=== PATIENT | female | born 1975 | race Hispanic/Latino ===

== ENCOUNTER 2022-07-24 19:23 | Emergency (ER) | payer BC ==
--- OUTSIDE RECORDS SUMMARY | 2022-07-24 19:28 | XMS REPORT | Continuity of Care Document ---
:1975 Author Organization [facility] t Address [address] [facility] [address] [place] [address] Care Team Providers Name Role Phone Shaun Carballo MD Primary Care Physician [phone] Bonita Lozano Attending Clinician Unavailable Shaun Carballo MD Attending Clinician Lab, Ang - Db Attending Clinician Unavailable SHAUN CARBALLO Attending Clinician Unavailable Doctor Unassigned, [place] Attending Clinician Unavailable Brenda Gonzalez RN Attending Clinician Unavailable Lab, Adc Fam Pob I Attending Clinician Unavailable Ashleigh Haro Attending Clinician ASHLEIGH PEREZ Attending Clinician Unavailable Payers Payer Name Policy Type Policy Number Effective Date Expiration Date Jessica gracie AETNA O [id number] 2013 00:00:00 [employer] and C1 [id number] 2020 Common Blue [facility] 00:00:00 [facility] AETNA C1 [id number] [facility] [id number] 2014 HEALTHCARE 00:00:00 PPO/POS Problems Condition Condition Condition Status Onset Resolution Last Treating Co mments Source Name Details Category Date Date Treatment Clinician Date No known No known Disease Unive rs active active ity of problems problems [facility] Asthma Asthma Problem Active [facility] Vitamin D Vitamin D Problem Active Com [facility] Hypothyroi Hypothyroi Problem Active C ommon dism dism [facility] Allergies, Adverse Reactions, Alerts Allergy Allergy Status Severity Reaction(s) Onset Inactive Treating Comm ents Source Name Type Date Date Clinician TRAMADOL DRUG Active Rash Univers INGREDI 10-29 ity of 00:00: [place] 00 [facility] Tramadol Propensi Active Rash Univer s ty to 10-29 ity of adverse 00:00: [place] reaction 00 [facility] [place] Social History Social Habit Start Date Stop Date Quantity Comments Source History of Common [facility] - Tobacco Use [facility] Sex Assigned At Common mariza - [facility] Exposure to 2021-10-19 2021-10-29 Not sure [facility] SARS-CoV-2 00:00:00 10:06:00 [facility] (event) [place] Tobacco use and 2020-10-29 2020-10-29 Smokeless tobacco Un iversity of exposure 00:00:00 00:00:00 non-user [facility] Alcohol intake 2020-10-29 2020-10-29 Ex-drinker [facility] 00:00:00 00:00:00 (finding) [facility] Smoking Status Start Date Stop Date Source Never Smoker [facility] Medications Ordered Filled Start Stop Current Ordering Indication Dosage Frequency Signature Comments Components Source Medication Medication Date Date Medication? Clinician (SIG) Name Name montelukast 2021- No 10mg Take 10 mg Univers 10 mg 10-29 by mouth. ity of tablet 10:52: 00:00 [place] 19 :00 [facility] Branch albuterol 2021- No 2{puff} Inhale 2 Univers (VENTOLIN 10-29 Puffs ity of HFA) 90 10:52: 00:00 every 6 [place] mcg/actuati 19 :00 (six) Medical on inhaler hours as Branc h needed for Wheezing or Shortness of Breath. dicyclomine Yes [id number] 20mg Take 1 Univers 20 mg 10-29 tablet by ity of tablet 00:00: mouth 3 [place] 00 (three) Medical times Branch daily. albuterol Yes [id number] 2{puff} Inhale 2 Univers (VENTOLIN 6-23 Puffs ity of HFA) 90 00:00: every 6 [place] mcg/actuati 00 (six) Medical on inhaler hours as Branc h needed for Wheezing or Shortness of Breath. montelukast 0 Yes [id number] 10mg Take 1 Univers 10 mg 6-23 tablet by ity of tablet 00:00: mouth [place] 00 daily. Medical Branch levothyroxi 0 Yes [id number] 137ug Take 1 Univers ne 6-23 tablet by ity of (EUTHYROX) 00:00: mouth [place] 137 mcg 00 every Medical tablet morning. Branch dicyclomine 0 Yes [id number] 20mg Take 1 Univers 20 mg 6-23 tablet by ity of tablet 00:00: mouth 3 [place] 00 (three) Medical times Branch daily. albuterol 0 Yes [id number] 2{puff} Inhale 2 Univers (VENTOLIN 6-23 Puffs ity of HFA) 90 00:00: every 6 [place] mcg/actuati 00 (six) Medical on inhaler hours as Branc h needed for Wheezing or Shortness of Breath. montelukast 0 Yes [id number] 10mg Take 1 Univers 10 mg 6-23 tablet by ity of tablet 00:00: mouth [place] 00 daily. Medical Branch levothyroxi 0 Yes [id number] 137ug Take 1 Univers ne 6-23 tablet by ity of (EUTHYROX) 00:00: mouth [place] 137 mcg 00 every Medical tablet morning. Branch dicyclomine 0 Yes [id number] 20mg Take 1 Univers 20 mg 6-23 tablet by ity of tablet 00:00: mouth 3 [place] 00 (three) Medical times Branch daily. albuterol 2021-0 Yes [id number] 2{puff} Inhale 2 Univers (VENTOLIN 6-23 Puffs ity of HFA) 90 00:00: every 6 [place] mcg/actuati 00 (six) Medical on inhaler hours as Branc h needed for Wheezing or Shortness of Breath. montelukast 0 Yes [id number] 10mg Take 1 Univers 10 mg 6-23 tablet by ity of tablet 00:00: mouth [place] 00 daily. Medical Branch levothyroxi Yes [id number] 137ug Take 1 Univers ne 6-23 tablet by ity of (EUTHYROX) 00:00: mouth [place] 137 mcg 00 every Medical tablet morning. Branch dicyclomine Yes [id number] 20mg Take 1 Univers 20 mg 6-23 tablet by ity of tablet 00:00: mouth 3 [place] 00 (three) Medical times Branch daily. albuterol Yes [id number] 2{puff} Inhale 2 Univers (VENTOLIN 6-23 Puffs ity of HFA) 90 00:00: every 6 [place] mcg/actuati 00 (six) Medical on inhaler hours as Branc h needed for Wheezing or Shortness of Breath. montelukast Yes [id number] 10mg Take 1 Univers 10 mg 6-23 tablet by ity of tablet 00:00: mouth [place] 00 daily. Medical Branch levothyroxi Yes [id number] 137ug Take 1 Univers ne 6-23 tablet by ity of (EUTHYROX) 00:00: mouth [place] 137 mcg 00 every Medical tablet morning. Branch levothyroxi 2021- No [id number] 137ug Take 1 Univers ne 6-16 06-23 tablet by ity of (EUTHYROX) 00:00: 00:00 mouth [place] 137 mcg 00 :00 every Medical tablet morning. Branch dicyclomine 2020-05- No [id number] 20mg Take 1 Univers 20 mg 0-18 06-23 tablet by ity of tablet 00:00: 00:00 mouth 3 [place] 00 :00 (three) Medical times Branch daily. medroxyPROG 2021-0 Yes 150mg 150 mg by Univers ESTERone 6-23 Intramuscu ity o f 150 mg/mL 13:37: lar route Christ as syringe 07 every 3 Medical (three) Branch months. medroxyPROG 2021-0 Yes 150mg 150 mg by Univers ESTERone 6-23 Intramuscu ity o f 150 mg/mL 13:37: lar route Christ as syringe 07 every 3 Medical (three) Branch months. medroxyPROG 2021-0 Yes 150mg 150 mg by Univers ESTERone 6-23 Intramuscu ity o f 150 mg/mL 13:37: lar route Christ as syringe 07 every 3 Medical (three) Branch months. medroxyPROG Yes 150mg 150 mg by Univers ESTERone 6- Intramuscu ity o f 150 mg/mL 13:37: lar route Christ as syringe 07 every 3 Medical (three) Branch months. Dicyclomine Dicyclomine 2020- No 1{table TID Dicyclomin HCl 20 MG HCl 20 MG 3-19 04-18 t} e HCl 20 00:00: 00:00 MG 00 :00 Dicyclomine Dicyclomine 2019- No 1{table TID Dicyclomin Common HCl 20 MG HCl 20 MG 0-19 t} e HCl 20 S pirit 00:00: MG - [facility] 00 [facility] Dicyclomine Dicyclomine 2019-05 No 1{table TID Dicyclomin HCl 20 MG HCl 20 MG 0-19 t} e HCl 20 00:00: MG 00 Dicyclomine Dicyclomine 2019-05 No 1{table TID Dicyclomin HCl 20 MG HCl 20 MG 0-19 t} e HCl 20 00:00: MG 00 Hydrocortis Hydrocortis 2018-05- No [place] 1 Common one one 05-20 05-10 [place] applicatio Spirit 00:00: 00:00 n - CHI 00 :00 [facility] Ventolin Ventolin No 2{puffs QID Ventolin HFA 108 (90 HFA 108 (90 _as_nee HFA 108 Base) Base) ded} (90 Base) MCG/ACT MCG/ACT MCG/ACT Singulair Singulair No 1{table QD Singulair 10 MG 10 MG t} 10 MG Hydroquinon Hydroquinon No Hydroquino e 4 % e 4 % ne 4 % Sprintec 28 Sprintec 28 No Sprintec 0.25-35 0.25-35 28 0.25-35 MG-MCG MG-MCG MG-MCG Levothyroxi Levothyroxi No QD Levothyrox ne Sodium ne Sodium ine Sodium 175MCG 175MCG 175MCG Betamethaso Betamethaso No 1{appli BID Betamethas ne ne cation_ one Dipropionat Dipropionat to_affe Dipropiona e 0.05 % e 0.05 % cted_ar te 0.05 % ea} Ventolin Ventolin No 2{puffs QID Ventolin Common HFA 108 (90 HFA 108 (90 _as_nee HFA 108 Spirit Base) Base) ded} (90 Base) [facility] MCG/ACT MCG/ACT MCG/ACT [facility] Hydroquinon Hydroquinon No Hydroquino Common e 4 % e 4 % ne 4 % [facility] Singulair Singulair No 1{table QD Singulair Common 10 MG 10 MG t} 10 MG [facility] Sprintec 28 Sprintec 28 No Sprintec Common 0.25-35 0.25-35 28 0.25-35 Spi rit MG-MCG MG-MCG MG-MCG [facility] Levothyroxi Levothyroxi No QD Levothyrox Common ne Sodium ne Sodium ine Sodium Spirit 175MCG 175MCG 175MCG [facility] Ventolin Ventolin No 2{puffs QID Ventolin HFA 108 (90 HFA 108 (90 _as_nee HFA 108 Base) Base) ded} (90 Base) MCG/ACT MCG/ACT MCG/ACT Levothyroxi Levothyroxi No QD Levothyrox ne Sodium ne Sodium ine Sodium 150 MCG 150 MCG 150 MCG Hydroquinon Hydroquinon No Hydroquino e 4 % e 4 % ne 4 % Singulair Singulair No 1{table QD Singulair 10 MG 10 MG t} 10 MG Sprintec 28 Sprintec 28 No Sprintec 0.25-35 0.25-35 28 0.25-35 MG-MCG MG-MCG MG-MCG Levothyroxi Levothyroxi No QD Levothyrox ne Sodium ne Sodium ine Sodium 175MCG 175MCG 175MCG Ventolin Ventolin No 2{puffs QID Ventolin HFA 108 (90 HFA 108 (90 _as_nee HFA 108 Base) Base) ded} (90 Base) MCG/ACT MCG/ACT MCG/ACT Hydroquinon Hydroquinon No Hydroquino e 4 % e 4 % ne 4 % Singulair Singulair No 1{table QD Singulair 10 MG 10 MG t} 10 MG Sprintec 28 Sprintec 28 No Sprintec 0.25-35 0.25-35 28 0.25-35 MG-MCG MG-MCG MG-MCG Levothyroxi Levothyroxi No QD Levothyrox ne Sodium ne Sodium ine Sodium 175MCG 175MCG 175MCG Levothyroxi Levothyroxi No QD Levothyrox ne Sodium ne Sodium ine Sodium 150 MCG 150 MCG 150 MCG Hydroquinon Hydroquinon No Hydroquino e 4 % e 4 % ne 4 % Singulair Singulair No 1{table QD Singulair 10 MG 10 MG t} 10 MG Ventolin Ventolin No 2{puffs QID Ventolin HFA 108 (90 HFA 108 (90 _as_nee HFA 108 Base) Base) ded} (90 Base) MCG/ACT MCG/ACT MCG/ACT 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-Power 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-Power Reactor 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 No 1{ml} Depo-Prove a 150 MG/ML a 150 MG/ML ra 150 MG/ML Levothyroxi Levothyroxi No QD Levothyrox ne Sodium ne Sodium ine Sodium 137 MCG 137 MCG 137 MCG Hydrocortis Hydrocortis 2019- No [place] 1 Common one Acetate one Acetate 11-12 [place] applicatio Spirit 00:00 n - [facility]I :00 [facility] Immunizations Ordered Filled Immunization Date Status Comments Sourc e Immunization Name Name Influenza Virus 2022-02-09 Completed Universit y of Vaccine Quad .5 mL 00:00:00 [facility] 6+ MO Branch Influenza Virus 2022-02-09 Completed Universit y of Vaccine Quad .5 mL 00:00:00 [facility] 6+ MO Branch Flublok Flublok 2020-02-25 Completed Common Spirit - 11:51:00 [facility] Flublok Flublok 2020-02-25 Completed Common Spirit - 11:51:00 [facility] Flublok Flublok 2020-02-25 Completed Common Spirit - 11:51:00 [facility] Flublok Flublok 2020-02-25 Completed Common Spirit - 11:51:00 [facility] Vital Signs Vital Name Observation Time Observation Value Comments Source Systolic blood 2021-10-29 15:16:00 122 mm[Hg] Univer sity of pressure [facility] Diastolic blood 2021-10-29 15:16:00 79 mm[Hg] Unive rsity of pressure [facility] Heart rate 2021-10-29 15:16:00 76 /min [facility] Body weight 2021-10-29 15:16:00 77.111 kg [facility] BMI 2021-10-29 15:16:00 31.09 kg/m2 [facility] height 2020-07-25 11:40:00 61.5 [in_i] Common [facility] weight 2020-07-25 11:40:00 166 [lb_av] Common [facility] temperature 2020-07-25 11:40:00 98.0 [degF] Common [facility] bmi 2020-07-25 11:40:00 30.85 kg/m2 [facility] oximetry 2020-07-25 11:40:00 100 % [facility] respiratory rate 2020-07-25 11:40:00 8 /min Comm on [facility] blood pressure 2020-07-25 11:40:00 127 mm[Hg] Common [facility] - systolic [facility] blood pressure 2020-07-25 11:40:00 62 mm[Hg] Common [facility] - diastolic [facility] height 2020-02-25 11:00:00 61.5 [in_i] Common [facility] weight 2020-02-25 11:00:00 164.8 [lb_av] Common [facility] temperature 2020-02-25 11:00:00 97.2 [degF] Common [facility] bmi 2020-02-25 11:00:00 30.63 kg/m2 [facility] oximetry 2020-02-25 11:00:00 99 % [facility] respiratory rate 2020-02-25 11:00:00 16 /min Comm on [facility] blood pressure 2020-02-25 11:00:00 122 mm[Hg] Common [facility] - systolic [facility] blood pressure 2020-02-25 11:00:00 70 mm[Hg] Common [facility] - diastolic [facility] Procedures This patient has no known procedures. Encounters Start End Encounter Admission Attending Care Care Encounter Source Date/Time Date/Time Type Type Clinicians Facility Department ID 2021-06-03 Outpatient BISMARK Lozano [facility] [id number] Common 12:42:13 [place] [address] Spirit - [facility] 2022-05-10 2022-05-10 Telephone [facility] [id number] Univers 00:00:00 00:00:00 [facility] [id number] it y of [place] [id number] Christ as BRAULIO?BLEA [phone] [address] MEDICAL OFFICE BUILDING 2022-02-09 2022-02-09 Telephone [facility] [id number] Univers 00:00:00 00:00:00 [facility] [id number] it y of [place] [id number] Christ as BRAULIO?BLEA [phone] [address] OFFICE [facility] 2021-10-29 2021-10-29 Bar Pointer Lab, Ang - Db [facility] [id number] Univers 11:00:00 11:15:00 Visit Shaun Carballo [facility] [id number] ity of [place] [id number] Christ as BRAULIO?BLEA [phone] [facility] [address] [place] MEDICAL OFFICE BUILDING 2021-10-29 2021-10-29 [id number] [facility] 11:00:00 11:00:00 SHAUN [facility] 2021-10-29 2021-10-29 Office [facility] [id number] [facility] 10:00:00 10:55:28 Visit [facility] [id number] it y of [place] [id number] Christ as BRAULIO?BLEA [phone] Me dic[address] OFFICE [facility] 2021-10-29 2021-10-29 [facility] [id number] Univers 10:00:00 10:55:28 SHAUN allen [facility] 2021-10-22 2021-10-22 [facility] [id number] Univers 00:00:00 00:00:00 [facility] [id number] it y of [place] [id number] Christ as BRAULIO?BLEA [phone] [address] OFFICE [facility] 2021-10-13 2021-10-13 [facility] [id number] Univers 00:00:00 00:00:00 [facility] HEALTH [id number] it y of [place] [id number] Christ as BRAULIO?BLEA [phone] [address] OFFICE [facility] 2021-09-15 2021-09-15 [facility] 1.2.840.114 [id number] Univers 00:00:00 00:00:00 [facility] [id number] it y of [place] [id number] Christ as BRAULIO?BLEA [phone] [address] 2021-08-16 2021-08-16 [facility] 1.2.840.114 [id number] Univers 00:00:00 00:00:00 [facility] [id number] it y of [place] [id number] Christ as PROFESSIO [id number] [address] ONE 2021-08-13 2021-08-13 [facility] 1.2.840.114 [id number] Univers 00:00:00 00:00:00 [facility] HEALTH [id number] it y of [place] [id number] Christ as PROFESSIO [phone] [address] ONE 2021-07-13 2021-07-13 [facility] 1.2.840.114 [id number] Univers 00:00:00 00:00:00 Shaun HEALTH [id number] it y of [place] [id number] Christ as PROFESSIO [phone] [address] 2021-06-11 2021-06-11 Telephone [facility] 1.2.840.114 [id number] Univers 00:00:00 00:00:00 Shaun HEALTH [id number] it y of [place] [id number] Christ as PROFESSIO [phone] [address] 2021-02-26 2021-02-26 [facility] 1.2.840.114 [id number] Univers 00:00:00 00:00:00 Shaun HEALTH [id number] it y of [place] [id number] Christ as BRAULIO?BLEA [phone] [address] OFFICE [facility] 2021-02-23 2021-02-23 [facility] 1.2.840.114 [id number] Univers 00:00:00 00:00:00 Shaun Health [id number] it y of [place] [id number] Christ as Braulio?Blea [phone] [address] Office [facility] 2021-01-29 2021-01-29 Orders Doctor GOMEZ 1.2.840.114 [id number] Univers 00:00:00 00:00:00 Only UnassignedBORIS [id number] ity of [place] [facility] [id number] Christ as [phone] [address] 2020-11-14 2020-11-14 Orders JASON Carballo 1.2.840.114 [id number] Univers 00:00:00 00:00:00 Only Sahun JOSEY [id number] it y of [place] [facility] [id number] Christ as [id number] [address] 2020-10-29 2020-10-[address] [facility] 1.2.840.114 [id number] Univers 13:25:41 13:55:41 Visit Shaun Sewell [id number] it y of [place] [id number] Christ as Professio [id number] [address] Office Building One 2020-10-29 2020-10-29 Outpatient R ROSITA [facility] [id number] Univers 13:30:00 13:30:00 SHAUN ity of [facility] 2020-10-29 2020-10-29 Orders Doctor JASON 1.2.840.114 [id number] Univers 00:00:00 00:00:00 Only Unassigned, BORIS [id number] [facility] [id number] Christ as [id number] [address] 2020-07-25 2020-07-25 [facility] [id number] Co mmon 00:00:00 00:00:00 VISIT EST Spir it PT LEVEL 3 - [facility] 2020-07-08 2020-07-08 (TEL) [facility] [id number] Co mmon 00:00:00 00:00:00 [facility] 2020-04-08 2020-04-08 (TEL) [facility] [id number] Co mmon 00:00:00 00:00:00 [facility] 2020-02-25 2020-02-25 PREV VISIT [facility] ST[facility] [id number] Common 00:00:00 00:00:00 EST AGE Spirit 40-64 - [facility] 2020-02-06 2020-02-06 (TEL) [facility] [id number] Co mmon 00:00:00 00:00:00 [facility] 2020-01-10 2020-01-10 Letter JASON Gonzalez [id number] Univers 00:00:00 00:00:00 (Out) Brneda ESCALANTE [id number] it y of [facility] [id number] Christ as [id number] [facility] [address] [place] 2020-01-09 2020-01-09 Laboratory Lab, Adc Fam Pob I [facility] 1.2. 840.114 [id number] Univers 13:09:32 13:24:32 Only Ashleigh Perez [id number] ity of [place] [id number] Christ as Professio [phone] Ms dical [facility] [address] [place] Office Building One 2020-01-09 2020-01-09 Outpatient R ANA [facility] [id number] Univers 13:00:00 13:00:00 ASHLEIGH ity [facility] 2020-01-09 2020-01-09 Letter Doctor JASON 1.2.840.114 [id number] Univers 00:00:00 00:00:00 (Out) Unassigned, BORIS [id number] ity of [place] [facility] [id number] Christ as [phone] [address] 2019-03-20 2019-03-20 Outpatient [facility] [id number] Common 11:44:00 11:44:00 [facility] 2019-02-26 2019-02-26 Outpatient [facility] [id number] Common 08:20:00 08:20:00 [facility] Results Test Description Test Time Test Comments Results Result Comments Source SARS-CoV-2 (COVID-19), RT-PCR/TMA 2021-05-28 15:38:03 Test Item Value Reference Range Interpretation Comme nts SARS-CoV-2 INTERPRETATION NEGATIVE SEE NOTE S ARS-CoV-2 RNA NOT (test code = 20864) DETECTED Negative results do not preclude SARS-C oV-2 infection and should notb e used as the sole basis for patient management deci sions. Negativeresults must be combined with c linical observations, p atient history,and epi demiological information. Op timum specimen types and timin gfor peak viral levels during i nfections caused by SARS-CoV-2 h ave notbeen determined. Col lection of multiple specim ens or types ofspecimens may be necessary to detect virus. I mproper specimencollect ion and handling, seque nce variability under primers/p robes,or organism presen t below the limit of detect ion may lead to falsenegative r esults. Positive and negative pr edictive values oftesting are h ighly dependent on prevalence. False negative testresults are more likely when prevalence is high. SOURCE (test code = 43292) NASOPHARYNGEAL Note: Methodology is Renee Maximino Real-Time RT-PCR. The expected result or reference range is NEGATI VE (Not Detected). For more information regarding COVID -19 testing to include clinica linformation, methodology det ail, intended use, FDA author ization andrecommended fact sheets for patients or hea lthcare providers, see [employer] Announcement: S ARS-CoV-2 (COVID-19) by N AAT at URL below (note,fact shee ts are provided by method given in report:https:// www.Daily Dealy.Hipui/ clinicians/mikel nt-communication s/ Alternativel y, see downloadable PD F fact sheet at:https://www. [employer]ail/COVI D-19-RT-PCR UNL ESS OTHERWISE INDICATED, ALL TESTING PERFORMED [facility], I MS. [address] [place] [address] [id number] 4 PROGRAM MGR: Luís SPANN [id number] CAP ACCREDITATION N O. [id number]
[2022-07-24] MEDS ORDERED: ONDANSETRON 4 MG/2 ML VIAL ONE (20:07)
[2022-07-24] MEDS ORDERED: NA CHLORIDE 0.9% 1,000 ML ONE (20:07)
[2022-07-24] MEDS ORDERED: KETOROLAC 30 MG/ML INJ ONE (20:07)
[2022-07-24] MEDS ORDERED: FAMOTIDINE 20 MG/2 ML VIAL IV ONE (20:07)
[2022-07-24 20:14] LABS: Absolute Lymphocytes (CBC) 1.1 K/uL (0.7-4.9); Hematocrit 42.1 % (36.0-45.0); Lymphocytes % 15.4 % (15.3-44.8); MCV 89.8 fL (80-100); MPV 8.7 fL (7.6-11.3); RBC Red Blood Cell Count 4.69 M/uL (3.86-4.86)
[2022-07-24 20:16] LABS: Urine Blood Trace-intact (Negative); Urine Glucose Negative (Negative); Urine Protein 1+ (Negative); Urine Specific Gravity 1.015 (1.005-1.030); Urine pH 6.5 (5.0-7.0)
[2022-07-24 20:29] LABS: Albumin 3.8 g/dL (3.4-5.0); Bilirubin Total 0.4 mg/dL (0.2-1.0); Potassium 3.2 mEq/L (3.5-5.1); Protein, Total 7.6 g/dL (6.4-8.2)
[2022-07-24 20:31] LABS: Urine Specific Gravity/Preg 1.015 (1.005-1.030)
--- NOTE | 2022-07-24 21:27 | RAD REPORT ---
EXAM DESCRIPTION: CT - Abdomen Pelvis W Contrast - 07/24/2022 8:54 pm CLINICAL HISTORY: Abdominal pain COMPARISON: 2009 TECHNIQUE: Computed axial tomography of the abdomen pelvis was obtained. 95 cc Isovue-300 was admini stered intravenously. Oral contrast was not requested which limits evaluation of bowel and appendix All CT scans are performed using dose optimization technique as appropriate and may include automated exposure control or mA/KV adjustment according to patient size. FINDINGS: The liver, spleen, pancreas, adrenal and kidneys appear unremarkable. There is no evidence of diverticulitis. Normal appendix No adnexal mass Wall of the distal stomach appears thickened Tiny umbilical hernia IMPRESSION: Wall of the distal stomach appears thickened. This may be secondary to inflammation
--- NOTE | 2022-07-24 21:35 | EDPHYS ---
Physician Documentation [facility] Name: Perlita Holguin Age: 47 yrs Sex: Female : 1975 Arrival Date: 07/24/2022 Time: 19:26 Bed 13 Private MD: ED Physician Fausto Mondragon HPI: 07/24 20:25 This 47 yrs old Female presents to ER via Ambulatory with complaints of ms3 Abdominal Pain. 20:25 47-year-old female wit past medical history of hypothyroidism presents for abdominal ms3 pain that began last night. Patient rates her pain a 9/10 describes pain as cramping. Patient states she has body aches, diarrhea x1, chills. Patient denies shortness of breath or chest pain. Patient denies alleviating or inciting factors. Historical: - Allergies: 19:55 tramadol; ha1 - Home Meds: 19:55 levothyroxine oral [Active]; ha1 - Immunization history:: Adult Immunizations up to date. - Social history:: Smoking status: unknown. ROS: 20:25 Constitutional: Negative for fever, and chills. Neck: Negative for injury, pain, and ms3 swelling, Cardiovascular: Negative for chest pain, and palpitations. Respiratory: Negative for shortness of breath, cough, wheezing, and pleuritic chest pain. 20:25 MS/Extremity: Negative for injury and deformity, Skin: Negative for injury, rash, and discoloration. 20:25 Abdomen/GI: Positive for abdominal pain, nausea, diarrhea. 20:25 All other systems are negative. Exam: 20:25 Constitutional: This is a well developed, well nourished patient who is awake, alert, ms3 and in no acute distress. Head/Face: Normocephalic, atraumatic. Neck: Trachea midline, no cervical lymphadenopathy. Supple, full range of motion without nuchal rigidity, or vertebral point tenderness. No Meningismus. Chest/axilla: Normal chest wall appearance and motion. Nontender with no deformity. Cardiovascular: Regular rate and rhythm with a normal S1 and S2. No gallops, murmurs, or rubs. Normal PMI, no JVD. No pulse deficits. Respiratory: Lungs have equal breath sounds bilaterally, clear to auscultation and percussion. No rales, rhonchi or wheezes noted. No increased work of breathing, no retractions or nasal flaring. 20:25 Abdomen/GI: Inspection: abdomen appears normal, Bowel sounds: normal, Palpation: mild abdominal tenderness, in the right lower quadrant. Vital Signs: 19:58 BP 101 / 70; Pulse 98; Resp 16; Temp 98.6; Pulse Ox 100% ; Weight 77.11 kg; Height 5 ha1 ft. 2 in. ; Pain 9/10; 20:45 BP 111 / 57; Pulse 83; Resp 18; Pulse Ox 98% on R/A; eh3 19:58 Body Mass Index 31.09 (77.11 kg, 157.48 cm) ha1 19:58 Pain Scale: Adult ha1 MDM: 19:46 Patient medically screened. ms3 20:25 Differential diagnosis: appendicitis, cholecystitis, Cholelithiasis, gastritis, ms3 non-specific abd pain. 07/24 19:45 Order name: Urine Dipstick-Ancillary (obtain specimen); Complete Time: 20:16 la3 07/24 19:45 Order name: Urine Test (obtain specimen); Complete Time: 20:16 ms3 07/24 20:17 Order name: Urine --Ancillary (enter results); Complete Time: 20:51 ds4 07/24 19:45 Order name: CT Abd/Pelvis - IV Contrast Only; Complete Time: 21:33 ms3 07/24 19:41 Order name: CBC with Diff; Complete Time: 20:23 kl 07/24 19:41 Order name: CMP; Complete Time: 20:51 kl 07/24 19:41 Order name: Lipase; Complete Time: 20:51 07/24 19:41 Order name: IV Saline Lock; Complete Time: 20:07 kl 07/24 19:41 Order name: Labs collected and sent; Complete Time: 20:07 07/24 20:17 Order name: Urine Dipstick-Ancillary; Complete Time: 20:23 EDMS Administered Medications: 20:00 Drug: Famotidine IVP 20 mg Route: IVP; Site: right antecubital; kl 21:32 Follow up: Response: No adverse reaction 3 20:17 Drug: NS 0.9% IV 1000 ml Route: IV; Rate: 1 bolus; Site: right antecubital; kl 20:17 Drug: Ondansetron IVP 4 mg Route: IVP; Site: right antecubital; kl 21:33 Follow up: Response: Nausea is decreased eh3 20:18 Drug: TORadol - Ketorolac IVP 15 mg Route: IVP; Site: right antecubital; kl 21:33 Follow up: Response: Pain is decreased eh3 Disposition Summary: 07/24/22 21:35 Discharge Ordered Location: Home ms3 Condition: Stable ms3 Diagnosis - Abdominal pain, Generalized ms3 - Nausea ms3 - Diarrhea, unspecified ms3 Followup: ms3 - With: Riccardo San DO - When: 2 - 3 days - Reason: Recheck today's complaints Forms: - Medication Reconciliation Form ms3 - Thank You Letter ms3 - Antibiotic Education ms3 - Prescription Opioid Use ms3 Signatures: Dispatcher [employer] Suad Benoit RN RN kl Sims, Marcus, DO DO ms3 Rebecca Ji RN RN 1 Addis Jennings RN 3
--- NOTE | 2022-07-24 21:35 | ER ---
Nurse's Notes [facility] Name: Perlita Holguin Age: 47 yrs Sex: Female : 1975 Arrival Date: 07/24/2022 Time: 19:26 Bed 13 Private MD: Diagnosis: Abdominal pain, Generalized;Nausea;Diarrhea, unspecified Presentation: 07/24 19:52 Acuity: MASON 3 ha1 19:58 Chief complaint: Patient states: I have been having diarrhea, nausea, and abdominal ha1 pain. Ebola Screen: No symptoms or risks identified at this time. Initial Sepsis Screen: Does the patient meet any 2 criteria? No. Patient's initial sepsis screen is negative. Does the patient have a suspected source of infection? No. Patient's initial sepsis screen is negative. Risk Assessment: Do you want to hurt yourself or someone else? Patient reports no desire to harm self or others. Onset of symptoms was July 24, 2022. 19:58 Method Of Arrival: Ambulatory ha1 Triage Assessment: 19:37 General: Appears comfortable, Behavior is calm, cooperative. Pain: Complains of pain in ha1 abdomen. EENT: No signs and/or symptoms were reported regarding the EENT system. Neuro: Level of Consciousness is awake, alert, obeys commands, Oriented to person, place, time, situation. Respiratory: Airway is patent Respiratory effort is even, unlabored, Respiratory pattern is regular, symmetrical. GI: Abdomen is flat, non-distended, Reports diarrhea, nausea. Musculoskeletal: Circulation, motion, and sensation intact. Range of motion: intact in all extremities. Historical: - Allergies: 19:55 tramadol; ha1 - Home Meds: 19:55 levothyroxine oral [Active]; ha1 - Immunization history:: Adult Immunizations up to date. - Social history:: Smoking status: unknown. Screenin:45 [facility] ED Fall Risk Assessment (Adult) Score/Fall Risk Level 0 - 2 = Low Risk. eh3 20:02 Abuse screen: Denies threats or abuse. Denies injuries from another. Nutritional ha1 screening: No deficits noted. Tuberculosis screening: No symptoms or risk factors identified. Assessment: 19:45 General: Appears in no apparent distress. uncomfortable, Behavior is calm, cooperative, eh3 appropriate for age. Pain: Complains of pain in abdomen Also complains of decreased appetite, nausea. Neuro: Level of Consciousness is awake, alert, obeys commands, Oriented to person, place, time, situation. Cardiovascular: Capillary refill < 3 seconds Patient's skin is warm and dry. Respiratory: Airway is patent Respiratory effort is even, unlabored, Respiratory pattern is regular, symmetrical. GI: Abdomen is round non-distended, Bowel sounds present X 4 quads. Abd is soft X 4 quads Abdomen is tender to palpation X 4 quads. GI: Reports lower abdominal pain, upper abdominal pain, diarrhea, intolerance of fluids, intolerance of food, nausea, vomiting. : No signs and/or symptoms were reported regarding the genitourinary system. EENT: No signs and/or symptoms were reported regarding the EENT system. Derm: Skin is pink, warm \T\ dry. Musculoskeletal: Circulation, motion, and sensation intact. Range of motion: intact in all extremities. 20:45 Reassessment: Patient appears in no apparent distress at this time. Patient and/or eh3 family updated on plan of care and expected duration. Pain level reassessed. Patient is alert, oriented x 3, equal unlabored respirations, skin warm/dry/pink. Patient states symptoms have improved. Vital Signs: 19:58 BP 101 / 70; Pulse 98; Resp 16; Temp 98.6; Pulse Ox 100% ; Weight 77.11 kg; Height 5 ha1 ft. 2 in. ; Pain 9/10; 20:45 BP 111 / 57; Pulse 83; Resp 18; Pulse Ox 98% on R/A; eh3 19:58 Body Mass Index 31.09 (77.11 kg, 157.48 cm) ha1 19:58 Pain Scale: Adult ha1 ED Course: 19:26 Patient arrived in ED. [id number] 19:26 Fausto Mondragon DO is Attending Physician. ms3 19:39 Addis Jennings, REKHA is Primary Nurse. eh3 19:45 Patient has correct armband on for positive identification. Placed in gown. Bed in low eh3 position. Call light in reach. Side rails up X2. Adult w/ patient. Pulse ox on. NIBP on. Door closed. Noise minimized. Lights dimmed. Warm blanket given. Pillow given. 19:54 Triage completed. ha1 20:00 Inserted saline lock: 20 gauge in right antecubital area, using aseptic technique. oe Blood collected. 20:56 CT Abd/Pelvis - IV Contrast Only In Process Unspecified. EDMS 21:35 Riccardo San DO is Referral Physician. ms3 Administered Medications: 20:00 Drug: Famotidine IVP 20 mg Route: IVP; Site: right antecubital; kl 21:32 Follow up: Response: No adverse reaction eh3 20:17 Drug: NS 0.9% IV 1000 ml Route: IV; Rate: 1 bolus; Site: right antecubital; kl 20:17 Drug: Ondansetron IVP 4 mg Route: IVP; Site: right antecubital; kl 21:33 Follow up: Response: Nausea is decreased eh3 20:18 Drug: TORadol - Ketorolac IVP 15 mg Route: IVP; Site: right antecubital; kl 21:33 Follow up: Response: Pain is decreased eh3 Outcome: 21:35 Discharge ordered by . ms3 Signatures: Dispatcher [employer] EDMS Suad Jones, RN RN Carroll Powell Marcus, DO DO ms3 Pilar Hdez [email or web address] Addis Jennings RN RN eh3 Rebecca Ji RN RN ha1
[2022-07-24] MEDS ORDERED: POTASSIUM 25 MEQ EFFERV TAB ONE (21:42)
[2022-07-24 22:40] VITALS: TEMP 98.6
[2022-07-24 22:41] VITALS: BP 111/57; O2SAT 98
== END 2022-07-24 21:52 | disposition home or self-care (01) ==
LOC: ER 19:23
DX: R10.84 Generalized abdominal pain (principal); R11.0 Nausea; R19.7 Diarrhea, unspecified; Z88.5 Allergy status to narcotic agent
CPT/HCPCS: 96361; 85025; 36415; 81025; 81003; 83690; 80053; 74177; 96375; 96374; 99284; Q9967; J2405; J7030